=== PATIENT | male | born 1985 | race American Indian/Alaskan Native ===

== ENCOUNTER 2017-02-15 04:45 | Emergency (ER) | payer SELFPAY ==
[2017-02-15 05:00] VITALS: BP 138/82
== END 2017-02-15 05:10 | disposition left against medical advice (07) ==
LOC: ED 04:45
DX: J45.909 Unspecified asthma, uncomplicated (principal); Z53.21 Procedure and treatment not carried out due to patient leaving prior to being seen by health care provider